=== PATIENT | female | born 1950 | race Caucasian/White ===

== ENCOUNTER 2024-05-18 12:44 | Inpatient (IN) | payer BC ==
[~2024-05-18] VITALS: Ht 162.6 cm; Wt 67.6 kg
[2024-05-18] MEDS: IV NS 0.9% 1,000 ML BAG IV ONE (13:16)
[2024-05-18] MEDS: CEFEPIME 1 GM in IV D5W 50 ML IV ONE (13:38)
[2024-05-18 13:59] LABS: BASOPHILS # (AUTO) 0.1 K/uL (0.0-0.2); EOSINOPHILS # (AUTO) 0.3 K/uL (0.0-0.7); EOSINOPHILS % (AUTO) 6.5 % (0.0-6.0); HEMATOCRIT 28 % (33-45); HEMOGLOBIN 9.2 g/dL (11.5-14.8); LYMPHOCYTES # (AUTO) 0.8 K/uL (0.8-4.8); LYMPHOCYTES % (AUTO) 15.6 % (20.0-44.0); MEAN CORPUSCULAR HEMOGLOBIN 33 PG (26.0-33.0); MEAN CORPUSCULAR HGB CONC 33 g/dl (31.0-36.0); MEAN CORPUSCULAR VOLUME 100 fL (82-100); MONOCYTES # (AUTO) 0.5 K/uL (0.1-1.30); MONOCYTES % (AUTO) 9.1 % (2.0-12.0); NEUTROPHILS # (AUTO) 3.4 K/uL (1.8-8.9); NEUTROPHILS % (AUTO) 67.8 % (43.0-81.0); PLATELET COUNT (AUTO) 70 K/uL (150-450); RED BLOOD CELL COUNT(AUTO) 2.76 MIL/uL (4.0-5.2); RED CELL DISTRIBUTION WIDTH 16.4 % (11.5-15.0); WHITE BLOOD COUNT (AUTO) 5.1 K/uL (4.3-11.0)
[2024-05-18 14:29] LABS: CALCIUM, SERUM 9.3 mg/dL (8.5-10.1); CARBON DIOXIDE 28 mmol/L (21-32); CHLORIDE 99 mmol/L (98-107); CREATININE 2.6 mg/dL (0.6-1.3); GLUCOSE 210 mg/dL (74-106); POTASSIUM 4.2 mmol/L (3.5-5.1); SODIUM SERUM 135 mmol/L (136-145); UREA NITROGEN, BLOOD 45 mg/dL (7-18)
[2024-05-18 14:35] LABS: ALANINE AMINOTRANSFERASE 15 U/L (12-78); ALBUMIN 2.1 g/dL (3.4-5.0); ALKALINE PHOSPHATASE 87 U/L (46-116); ASPARTATE AMINOTRANSFERASE 19 U/L (15-37); BILIRUBIN,DIRECT 0.3 mg/dL (0.0-0.2); TOTAL PROTEIN, SERUM 6.1 g/dL (6.4-8.2)
[2024-05-18 14:43] LABS: LACTIC ACID 2.3 mmol/L (0.4-2.0)
[2024-05-18] MEDS ORDERED: BRIM5DRO11 EACHEYE (14:45)
[2024-05-18] MEDS ORDERED: ZINC50TA69 PO (14:45)
[2024-05-18] MEDS ORDERED: SPIR25TA6 PO (14:45)
[2024-05-18] MEDS ORDERED: CLOB15OI3 TP (14:45)
[2024-05-18] MEDS ORDERED: AMIO100T4 PO (14:45)
[2024-05-18] MEDS ORDERED: CICL6.6S5 TP (14:45)
[2024-05-18] MEDS ORDERED: LEVO75TA PO (14:45)
[2024-05-18] MEDS ORDERED: BUME1TAB8 PO (14:45)
[2024-05-18] MEDS ORDERED: CRAN500T3 PO (14:45)
[2024-05-18] MEDS ORDERED: BIOT5000 PO (14:45)
[2024-05-18] MEDS ORDERED: LATA7.5D EACHEYE (14:45)
[2024-05-18] MEDS ORDERED: INSU100I26 SQ (14:45)
[2024-05-18] MEDS ORDERED: MIDO2.5T PO (14:45)
[2024-05-18] MEDS ORDERED: TRAM50TA2 PO (14:45)
[2024-05-18] MEDS ORDERED: MAGN200T4 PO (14:45)
[2024-05-18] MEDS ORDERED: INSU100I34 SQ (14:45)
[2024-05-18] MEDS ORDERED: CEPH500C2 PO (14:45)
[2024-05-18] MEDS ORDERED: ACETAMINOPHEN 325 MG TABLET PO PRN (15:30)
[2024-05-18] MEDS ORDERED: ONDANSETRON HCL/PF 4 MG/2 ML VIAL IVP PRN (15:30)
[2024-05-18] MEDS ORDERED: MAG HYDROX/AL HYDROX/SIMETH 30 ML UDC PO PRN (15:30)
[2024-05-18] MEDS ORDERED: ZOLPIDEM TARTRATE 5 MG TABLET PO PRN (15:30)
[2024-05-18] MEDS ORDERED: Z GUARD REMEDY 4 OZ OINT TP PRN (15:30)
[2024-05-18] MEDS ORDERED: MAGNESIUM HYDROXIDE 30 ML UDC PO PRN (15:30)
[2024-05-18 15:35] LABS: EOSINOPHILS % (MANUAL) 10 % (0-4); LYMPHOCYTES % (MANUAL) 11 % (16-48); MONOCYTES % (MANUAL) 6 % (0-11.0); NEUTROPHILS % (MANUAL) 73 (42-76)
[2024-05-18 15:47] LABS: PLATELET ESTIMATE DECREASED
[2024-05-18 15:48] LABS: ANISOCYTOSIS 1+; HOWELL-JOLLY BODIES 1+; OVALOCYTES 1+
[2024-05-18] MEDS ORDERED: DEXTROSE 50%-WATER 50 ML DISP.SYRIN IV PRN (16:00)
[2024-05-18 16:13] LABS: INR 1.2 (0.91-1.10); PARTIAL THROMBOPLASTIN TIME 27.1 SEC (24.3-34.3); PROTHROMBIN TIME 12.3 SECS (9.2-11.1)
[2024-05-18] MEDS ORDERED: MIDODRINE HCL 2.5 MG TABLET PO SCH (17:00)
[2024-05-18 17:15] VITALS: BP 125/64; TEMP 97.5; O2SAT 100
[2024-05-18] MEDS: BLOOD SUGAR DIAGNOSTIC 1 EACH STRIP IN SCH (18:01)
[2024-05-18] MEDS: MIDODRINE HCL (5MG) 5 MG TABLET PO SCH (18:30)
[2024-05-18] MEDS: INSULIN REGULAR, HUMAN 100 UNIT/ML 3 ML VIAL SQ PRN (18:31)
[2024-05-18 20:00] VITALS: BP 132/57; TEMP 97.5; O2SAT 100
[2024-05-18] MEDS: IV NS 0.9% 1,000 ML IV PRN (20:12)
[2024-05-18] MEDS: LATANOPROST EYE DROP 0.005% 2.5 ML BOTTLE EACHEYE SCH (21:46)
[2024-05-18] MEDS: AMIODARONE HCL 200 MG TABLET PO SCH (21:50)
[2024-05-19] VITALS (7 sets, daily range): BP systolic 122–136; BP diastolic 54–64; TEMP 97.9–98.4; O2SAT 99–100
[2024-05-19 06:22] LABS: BASOPHILS # (AUTO) 0.1 K/uL (0.0-0.2); BASOPHILS % (AUTO) 1.1 % (0.0-2.0); EOSINOPHILS # (AUTO) 0.3 K/uL (0.0-0.7); EOSINOPHILS % (AUTO) 6.9 % (0.0-6.0); HEMATOCRIT 28 % (33-45); HEMOGLOBIN 9.6 g/dL (11.5-14.8); LYMPHOCYTES # (AUTO) 0.7 K/uL (0.8-4.8); LYMPHOCYTES % (AUTO) 15.2 % (20.0-44.0); MEAN CORPUSCULAR HEMOGLOBIN 34 PG (26.0-33.0); MEAN CORPUSCULAR HGB CONC 35 g/dl (31.0-36.0); MEAN CORPUSCULAR VOLUME 99 fL (82-100); MONOCYTES # (AUTO) 0.5 K/uL (0.1-1.30); MONOCYTES % (AUTO) 9.9 % (2.0-12.0); NEUTROPHILS # (AUTO) 3.2 K/uL (1.8-8.9); NEUTROPHILS % (AUTO) 66.9 % (43.0-81.0); PLATELET COUNT (AUTO) 72 K/uL (150-450); RED CELL DISTRIBUTION WIDTH 16.4 % (11.5-15.0); WHITE BLOOD COUNT (AUTO) 4.7 K/uL (4.3-11.0)
[2024-05-19 06:34] LABS: CALCIUM, SERUM 9.3 mg/dL (8.5-10.1); CARBON DIOXIDE 28 mmol/L (21-32); CHLORIDE 105 mmol/L (98-107); CREATININE 2.2 mg/dL (0.6-1.3); GLUCOSE 184 mg/dL (74-106); MAGNESIUM 2.2 mg/dL (1.8-2.4); PHOSPHORUS 3.4 mg/dL (2.5-4.9); POTASSIUM 3.4 mmol/L (3.5-5.1); SODIUM SERUM 138 mmol/L (136-145); UREA NITROGEN, BLOOD 39 mg/dL (7-18)
[2024-05-19 06:41] LABS: SERUM AMMONIA 35 umol/L (11-32)
[2024-05-19 07:39] LABS: BASOPHILS % (MANUAL) 1 % (0.0-2.0); EOSINOPHILS % (MANUAL) 5 % (0-4); LYMPHOCYTES % (MANUAL) 15 % (16-48); MONOCYTES % (MANUAL) 11 % (0-11.0); NEUTROPHILS % (MANUAL) 69 (42-76); PLATELET ESTIMATE DECREASED
[2024-05-19] MEDS: LEVOTHYROXINE SODIUM 75 MCG TABLET PO SCH (07:54)
[2024-05-19] MEDS: BRIMONIDINE TARTRATE OPHT SOLN 5 ML BOTTLE EACHEYE SCH (08:30)
[2024-05-19] MEDS ORDERED: CRANBERRY EXTRACT PO SCH (09:00)
[2024-05-19] MEDS: POTASSIUM CHLORIDE 20 MEQ TAB.PRT.SR PO SCH (10:48)
[2024-05-19] MEDS: CEFEPIME 1 GM in IV D5W 50 ML IV SCH (12:00)
[2024-05-19] MEDS: THERAHONEY GEL 1.5 OZ TUBE TP SCH (12:21)
[2024-05-19] MEDS: LACTULOSE 10 G/15 ML UDC (PYXIS) PO SCH (17:20)
[2024-05-19 17:25] LABS: APPEARANCE,URINE CLEAR (CLEAR); BILIRUBIN,URINE NEGATIVE (NEGATIVE); BLOOD, URINE NEGATIVE Ery/uL (NEGATIVE); COLOR,URINE YELLOW (YELLOW); KETONES,URINE NEGATIVE (NEGATIVE); LEUKOCYTE ESTERASE ,URINE 2+ (NEGATIVE); NITRITE, URINE NEGATIVE (NEGATIVE); PROTEIN,URINE NEGATIVE (NEGATIVE); UGLUCOSE NEGATIVE (NEGATIVE); UROBILINOGEN,URINE 0.2 EU/dL (0.2)
[2024-05-19 17:28] LABS: CREATININE, URINE 51.8 MG/DL (30.0-125.0); URINE TOTAL PROTEIN 9.5 mg/dL (0-11.9)
[2024-05-19 17:38] LABS: ADD URINE CULTURE YES; BACTERIA,URINE 1+ /HPF (None Seen); RBC,URINE 0-2 /HPF (0-2)
[2024-05-19 18:06] LABS: EOSINOPHIL,URINE None Seen
[2024-05-20] VITALS: BP 127/57; TEMP 98; O2SAT 100
[2024-05-20 04:00] VITALS: BP 125/56; TEMP 98; O2SAT 100
[2024-05-20 06:37] LABS: BASOPHILS % (AUTO) 0.4 % (0.0-2.0); EOSINOPHILS # (AUTO) 0.5 K/uL (0.0-0.7); EOSINOPHILS % (AUTO) 8.1 % (0.0-6.0); HEMATOCRIT 25 % (33-45); HEMOGLOBIN 8.6 g/dL (11.5-14.8); LYMPHOCYTES # (AUTO) 0.7 K/uL (0.8-4.8); LYMPHOCYTES % (AUTO) 12.7 % (20.0-44.0); MEAN CORPUSCULAR HEMOGLOBIN 34 PG (26.0-33.0); MEAN CORPUSCULAR HGB CONC 34 g/dl (31.0-36.0); MEAN CORPUSCULAR VOLUME 100 fL (82-100); MONOCYTES # (AUTO) 0.5 K/uL (0.1-1.30); MONOCYTES % (AUTO) 9.4 % (2.0-12.0); NEUTROPHILS % (AUTO) 69.4 % (43.0-81.0); PLATELET COUNT (AUTO) 64 K/uL (150-450); RED BLOOD CELL COUNT(AUTO) 2.54 MIL/uL (4.0-5.2); WHITE BLOOD COUNT (AUTO) 5.7 K/uL (4.3-11.0)
[2024-05-20 06:49] LABS: ALANINE AMINOTRANSFERASE 31 U/L (12-78); ALBUMIN 1.9 g/dL (3.4-5.0); ALKALINE PHOSPHATASE 98 U/L (46-116); ASPARTATE AMINOTRANSFERASE 39 U/L (15-37); BILIRUBIN,TOTAL 0.8 mg/dL (0.2-1.0); CALCIUM, SERUM 8.9 mg/dL (8.5-10.1); CHLORIDE 108 mmol/L (98-107); CREATININE 1.7 mg/dL (0.6-1.3); GLUCOSE 142 mg/dL (74-106); PHOSPHORUS 2.8 mg/dL (2.5-4.9); POTASSIUM 3.7 mmol/L (3.5-5.1); SODIUM SERUM 138 mmol/L (136-145); TOTAL PROTEIN, SERUM 5.8 g/dL (6.4-8.2); UREA NITROGEN, BLOOD 27 mg/dL (7-18)
[2024-05-20 06:52] LABS: CREATINE KINASE, TOTAL 15 U/L (26-192)
[2024-05-20 06:58] LABS: CARBON DIOXIDE 27 mmol/L (21-32)
[2024-05-20 08:00] VITALS: BP 147/63; TEMP 97.8; O2SAT 100
[2024-05-20 11:33] LABS: BASOPHILS % (MANUAL) 0 % (0.0-2.0); EOSINOPHILS % (MANUAL) 6 % (0-4); LYMPHOCYTES % (MANUAL) 13 % (16-48); MONOCYTES % (MANUAL) 9 % (0-11.0); NEUTROPHILS % (MANUAL) 72 (42-76); PLATELET ESTIMATE DECREASED
[2024-05-20 12:00] VITALS: BP 113/50; TEMP 98.2; O2SAT 100
[2024-05-20 16:00] VITALS: BP 118/56; TEMP 98.6; O2SAT 100
[2024-05-20 20:00] VITALS: BP 101/54; TEMP 97.3; O2SAT 100
[2024-05-21] VITALS: BP 101/49; TEMP 99.1; O2SAT 100
[2024-05-21 04:00] VITALS: BP 106/54; TEMP 98.8; O2SAT 100
[2024-05-21 06:57] LABS: BASOPHILS % (AUTO) 0.5 % (0.0-2.0); EOSINOPHILS # (AUTO) 0.5 K/uL (0.0-0.7); EOSINOPHILS % (AUTO) 7.8 % (0.0-6.0); HEMATOCRIT 25 % (33-45); HEMOGLOBIN 8.5 g/dL (11.5-14.8); LYMPHOCYTES # (AUTO) 0.8 K/uL (0.8-4.8); LYMPHOCYTES % (AUTO) 13.5 % (20.0-44.0); MEAN CORPUSCULAR HEMOGLOBIN 34 PG (26.0-33.0); MEAN CORPUSCULAR HGB CONC 34 g/dl (31.0-36.0); MEAN CORPUSCULAR VOLUME 100 fL (82-100); MONOCYTES # (AUTO) 0.5 K/uL (0.1-1.30); MONOCYTES % (AUTO) 7.9 % (2.0-12.0); NEUTROPHILS # (AUTO) 4.1 K/uL (1.8-8.9); NEUTROPHILS % (AUTO) 70.3 % (43.0-81.0); PLATELET COUNT (AUTO) 59 K/uL (150-450); RED BLOOD CELL COUNT(AUTO) 2.48 MIL/uL (4.0-5.2); RED CELL DISTRIBUTION WIDTH 16.4 % (11.5-15.0); WHITE BLOOD COUNT (AUTO) 5.9 K/uL (4.3-11.0)
[2024-05-21 07:13] LABS: CALCIUM, SERUM 8.8 mg/dL (8.5-10.1); CARBON DIOXIDE 20 mmol/L (21-32); CHLORIDE 110 mmol/L (98-107); CREATININE 1.7 mg/dL (0.6-1.3); GLUCOSE 125 mg/dL (74-106); SODIUM SERUM 140 mmol/L (136-145); UREA NITROGEN, BLOOD 25 mg/dL (7-18)
[2024-05-21 07:34] LABS: BASOPHILS % (MANUAL) 0 % (0.0-2.0); EOSINOPHILS % (MANUAL) 7 % (0-4); LYMPHOCYTES % (MANUAL) 15 % (16-48); MONOCYTES % (MANUAL) 9 % (0-11.0); NEUTROPHILS % (MANUAL) 69 (42-76); PLATELET ESTIMATE DECREASED
[2024-05-21 08:00] VITALS: BP 113/54; TEMP 97.3; O2SAT 100
[2024-05-21 08:10] LABS: *SPE A/G RATIO 0.7 (0.7-1.7); *SPE ALBUMIN 2.3 g/dL (2.9-4.4); *SPE ALPHA-1-GLOBULIN 0.1 g/dL (0.0-0.4); *SPE ALPHA-2-GLOBULIN 0.4 g/dL (0.4-1.0); *SPE BETA GLOBULIN 0.9 g/dL (0.7-1.3); *SPE GLOBULIN, TOTAL 3.3 g/dL (2.2-3.9); *SPE M-SPIKE Not Observed g/dL (Not Observed); *SPE PROTEIN TOTAL 5.6 g/dL (6.0-8.5); *SPEGAMMA GLOBULIN 1.9 g/dL (0.4-1.8); PTH, INTACT 37 pg/mL (15-65)
[2024-05-21 12:00] VITALS: BP 116/54; TEMP 98.4; O2SAT 100
[2024-05-21 16:00] VITALS: BP 116/54; TEMP 97.2; O2SAT 100
[2024-05-21 22:10] VITALS: BP 103/52; TEMP 97.2; O2SAT 100
[2024-05-22 04:01] VITALS: BP 130/65; TEMP 97.3; O2SAT 95
[2024-05-22 06:47] LABS: BASOPHILS % (AUTO) 0.8 % (0.0-2.0); EOSINOPHILS # (AUTO) 0.4 K/uL (0.0-0.7); EOSINOPHILS % (AUTO) 7.7 % (0.0-6.0); HEMATOCRIT 28 % (33-45); HEMOGLOBIN 9.4 g/dL (11.5-14.8); LYMPHOCYTES # (AUTO) 0.7 K/uL (0.8-4.8); LYMPHOCYTES % (AUTO) 12.7 % (20.0-44.0); MEAN CORPUSCULAR HEMOGLOBIN 34 PG (26.0-33.0); MEAN CORPUSCULAR HGB CONC 34 g/dl (31.0-36.0); MEAN CORPUSCULAR VOLUME 101 fL (82-100); MONOCYTES # (AUTO) 0.4 K/uL (0.1-1.30); MONOCYTES % (AUTO) 7.2 % (2.0-12.0); NEUTROPHILS % (AUTO) 71.6 % (43.0-81.0); PLATELET COUNT (AUTO) 62 K/uL (150-450); RED BLOOD CELL COUNT(AUTO) 2.78 MIL/uL (4.0-5.2); RED CELL DISTRIBUTION WIDTH 16.6 % (11.5-15.0); WHITE BLOOD COUNT (AUTO) 5.6 K/uL (4.3-11.0)
[2024-05-22 07:08] LABS: CALCIUM, SERUM 9.5 mg/dL (8.5-10.1); CARBON DIOXIDE 22 mmol/L (21-32); CHLORIDE 108 mmol/L (98-107); CREATININE 1.6 mg/dL (0.6-1.3); GLUCOSE 159 mg/dL (74-106); POTASSIUM 3.8 mmol/L (3.5-5.1); SODIUM SERUM 140 mmol/L (136-145); UREA NITROGEN, BLOOD 29 mg/dL (7-18)
[2024-05-22 07:56] LABS: ANISOCYTOSIS 1+; EOSINOPHILS % (MANUAL) 7 % (0-4); HELMET CELLS 1+; HYPOCHROMASIA 2+; LYMPHOCYTES % (MANUAL) 12 % (16-48); MONOCYTES % (MANUAL) 8 % (0-11.0); NEUTROPHILS % (MANUAL) 73 (42-76); PLATELET ESTIMATE DECREASED
[2024-05-22 08:00] VITALS: BP 155/60; TEMP 98.1; O2SAT 95
[2024-05-22 12:00] VITALS: BP 138/64; TEMP 97.9; O2SAT 97
[2024-05-22 16:00] VITALS: BP 119/52; TEMP 98; O2SAT 97
[2024-05-22 20:00] VITALS: BP 106/54; TEMP 98.2; O2SAT 97
[2024-05-23 06:37] VITALS: BP 116/62; TEMP 98.4; O2SAT 100
[2024-05-23] MEDS: SPIRONOLACTONE 25 MG TABLET PO SCH (08:21)
[2024-05-23] MEDS ORDERED: MIDO5TAB4 PO (12:35)
[2024-05-23] MEDS ORDERED: SPIR25TA6 PO (12:35)
[2024-05-23] MEDS ORDERED: LACT10SO58 PO (12:35)
[2024-05-23] MEDS ORDERED: COLL30OI TP (12:35)
[2024-05-23] MEDS ORDERED: NITR100C6 PO (12:35)
[2024-05-23 13:00] VITALS: BP 120/82; TEMP 98.4; O2SAT 100
== END 2024-05-23 13:47 | disposition home health service (06) | DRG 689 ==
LOC: ER 12:46 → TELE1 17:19 → MEDSG1 05-21 10:40
PROVIDERS: ADMIT Nurse Practitioner Acute Care; ATTEND Nurse Practitioner Acute Care
DX: N39.0 Urinary tract infection, site not specified (principal); N17.0 Acute kidney failure with tubular necrosis; E44.0 Moderate protein-calorie malnutrition; E87.20 Acidosis, unspecified; I12.9 Hypertensive chronic kidney disease with stage 1 through stage 4 chronic kidney disease, or unspecified chronic kidney disease; N18.9 Chronic kidney disease, unspecified; K74.60 Unspecified cirrhosis of liver; D64.9 Anemia, unspecified; E78.5 Hyperlipidemia, unspecified; E87.6 Hypokalemia; E88.09 Other disorders of plasma-protein metabolism, not elsewhere classified; I48.0 Paroxysmal atrial fibrillation; M89.8X9 Other specified disorders of bone, unspecified site; Z79.4 Long term (current) use of insulin; Z87.440 Personal history of urinary (tract) infections; Z88.2 Allergy status to sulfonamides; R53.1 Weakness; Z68.25 Body mass index [BMI] 25.0-25.9, adult; I95.9 Hypotension, unspecified; E11.22 Type 2 diabetes mellitus with diabetic chronic kidney disease; R00.1 Bradycardia, unspecified; E86.0 Dehydration; B96.89 Other specified bacterial agents as the cause of diseases classified elsewhere
CPT/HCPCS: 36415; 71045-TC; 76770-TC; 80048-TC; 80053-TC; 80076-TC; 81001; 82140-TC; 82550-TC; 82570-TC; 82962-TC; 83605-TC; 83735-TC; 83970; 84100-TC; 84155; 84165; 84300-TC; 84484-TC; 85025-TC; 85730-TC; 87040-TC; 87086-TC; 97110-TC; 97116-TC; 97530-TC; G0378; J0692; J1815; J7030; J7060